=== PATIENT | female | born 2000 | race Caucasian/White ===

== ENCOUNTER 2022-05-24 12:03 | Observation (INO) ==
[2022-05-24 14:07] LABS: Bacteria,Urine Few per hpf (None-Few); Bilirubin,Urine Negative (Negative); Blood,Urine Moderate (Negative); Clarity,Urine Turbid (Clear); Color,Urine Yellow (Yellow); Glucose,Urine (UA) Normal (Normal); Hyaline Casts,Urine Few per lpf (None Seen); Ketones,Urine Trace mg/dL (Negative); Leukocyte Esterase,Urine Large (Negative); Mucus,Urine Moderate per lpf (None-Few); Nitrite,Urine Negative (Negative); PH,Urine 6.5 pH Units (5.0-8.0); Protein,Urine >=300 mg/dL (Neg-Trace); Renal Epithelial Cells,Urine Few per hpf (None-Few); Specific Gravity,Urine > 1.030 (1.010-1.025); Squamous Epithelial Cell,Urine Many per hpf (None-Few); Transitional Epi Cells,Urine Few per hpf (None-Few); Urobilinogen,Urine Normal (Normal); WBC,Urine 50-100 per hpf (0-3)
[2022-05-24 14:54] LABS: Basophils % 0.5 %; Eosinophils # 0.1 K/mcL (0.0-0.6); Hematocrit 44.3 % (35.3-44.9); Hemoglobin 14.3 g/dL (11.5-15.4); Immature Granulocytes % 0.3 % (0-4); Lymphocytes # 1.3 K/mcL (0.6-4.6); Mean Corpuscular HGB Conc 32.3 g/dL (31.6-35.5); Mean Corpuscular Hemoglobin 29.4 pg (28.0-33.3); Mean Platelet Volume 9.5 fL (9.4-12.4); Monocytes # 0.9 K/mcL (0.0-1.3); Monocytes % 14.8 %; Neutrophils # 3.7 K/mcL (1.6-8.9); Platelet Count 425 K/mcL (140-400); Red Blood Count 4.87 M/mcL (3.82-4.97); Red Cell Distribution Width 13.1 % (11.5-14.5); Segmented Neutrophils % 61.4 %
[2022-05-24 15:02] LABS: Alanine Aminotransferase 13 Units/L (7-52); Albumin 4.7 g/dL (3.5-5.7); Albumin/Globulin Ratio 1.2 (1.1-2.2); Alkaline Phosphatase 159 Units/L (34-104); Amylase 36 Units/L (29-103); Aspartate Amino Transferase 14 Units/L (13-39); BUN/Creatinine Ratio 14 (6-26); Bilirubin,Direct 0.2 mg/dL (0.0-0.2); Bilirubin,Indirect 0.3 mg/dL (0.0-1.0); Bilirubin,Total 0.5 mg/dL (0.3-1.0); Blood Urea Nitrogen 12 mg/dL (6-20); Calcium 10.2 mg/dL (8.6-10.3); Carbon Dioxide 20 mEq/L (23-29); Chloride 103 mEq/L (98-107); Globulin 3.9 g/dL (2.4-3.5); Glucose 77 mg/dL (70-105); Lipase 14 Units/L (11-82); Osmolality,Calculated 279 (280-300); Potassium 3.6 mEq/L (3.5-5.1); Sodium 135 mEq/L (136-145); Total Protein 8.6 g/dL (6.4-8.9); eGFR For African Americans > 60 (> 60); eGFR For Non-African Americans > 60 (> 60)
[2022-05-24] MEDS ORDERED: Naloxone 0.4 MG/ML INJ IVP PRN (17:37)
[2022-05-24] MEDS ORDERED: Ondansetron 4 MG/2 ML VIAL IVP PRN (17:37)
[2022-05-24] MEDS ORDERED: Acetaminophen 325 MG TABLET PO PRN (17:37)
[2022-05-24] MEDS ORDERED: Melatonin 3 MG TABLET PO PRN (17:37)
[2022-05-24] MEDS: metroNIDAZOLE 500 MG TABLET PO SCH (20:52)
[2022-05-25] MEDS: MethylPREDNISolone 40 MG/ML VIAL IVP SCH ×3 (01:03→15:55)
[2022-05-25] MEDS: metroNIDAZOLE 500 MG TABLET PO SCH ×4 (07:09→21:07)
[2022-05-26] MEDS: MethylPREDNISolone 40 MG/ML VIAL IVP SCH ×2 (00:04→07:50)
[2022-05-26] MEDS: metroNIDAZOLE 500 MG TABLET PO SCH (07:49)
[2022-05-26 11:06] VITALS: BP 116/76; PULSE 75; TEMP 97.9; O2SAT 97
[2022-05-26 13:47] LABS: Adenovirus F 40/41 PCR Not detected (Not detect); Astrovirus PCR Not detected (Not detect); C.difficile Toxin A/B Gene PCR Not detected (Not detect); Campylobacter by PCR Not detected (Not detect); Cryptosporidium by PCR Not detected (Not detect); Cyclospora cayetanensis PCR Not detected (Not detect); Entamoeba histolytica PCR Not detected (Not detect); Enteroaggregative E.coli(EAEC) Not detected (Not detect); Enteropathogenic E.coli(EPEC) Not detected (Not detect); Enterotoxigenic E.coli (ETEC) Not detected (Not detect); Giardia lamblia PCR Not detected (Not detect); Norovirus GI/GII PCR Not detected (Not detect); Plesiomonas shigelloides PCR Not detected (Not detect); Rotavirus A PCR Not detected (Not detect); Salmonella PCR Not detected (Not detect); Sapovirus PCR Not detected (Not detect); Shig/EnteroinvasiveE coli EIEC Not detected (Not detect); Shigalike tox-prod E coli STEC Not detected (Not detect); Vibrio PCR Not detected (Not detect); Vibrio cholerae PCR Not detected (Not detect); Yersinia enterocolitica PCR Not detected (Not detect)
== END 2022-05-26 16:13 | disposition home or self-care (01) ==
LOC: EMEROOARM 12:03 → 2ANU 12:03 → SUATTDRO 18:27 → 2ANU 19:07
PROVIDERS: ADMIT Family Medicine; ATTEND Nurse Practitioner